=== PATIENT | male | born 1995 | race Caucasian/White ===

== ENCOUNTER 2016-07-16 22:23 | Emergency (ER) | payer SELFPAY ==
[2016-07-16 22:55] LABS: % IMMATURE GRANULYOCYTES 0.4 % (0.0-1.1); ABSOLUTE IMMATURE GRANULOCYTES 0.02 10^3/uL (0.00-0.10); ADD DIFF? NO; ADD MORPH? NO; ADD SCAN? NO; ATYPICAL LYMPHOCYTE FLAG 0 (0-99); FRAGMENT RBC FLAG 0 (0-99); HEMATOCRIT 47.4 % (40.0-51.0); HEMOGLOBIN 16.1 g/dL (13.7-17.5); LEFT SHIFT FLG 0 (0-99); LIPEMIA HEMOLYSIS FLAG 90 (0-99); MEAN CELL HEMOGLOBIN 31.4 pg (27.9-34.1); MEAN CELL VOLUME 92.6 fL (81.5-99.8); MEAN PLATELET VOLUME 9.7 fL (8.7-11.7); PLATELET CLUMPS FLAG 0 (0-99); PLATELET COUNT 260 10^3/uL (150-400); RED BLOOD CELL COUNT 5.12 10^6/uL (4.40-6.38); RED CELL DISTRIBUTION WIDTH 11.9 % (11.5-15.2)
[2016-07-16 22:57] LABS: ALANINE AMINOTRANSFERASE 28 IU/L (21-72); ALBUMIN 4.8 g/dL (3.5-5.0); ALKALINE PHOSPHATASE 46 IU/L (38-126); ANION GAP 14 mEq/L (8-16); ASPARTATE AMINOTRANSFERASE 28 IU/L (17-59); BILIRUBIN,TOTAL 0.5 mg/dL (0.1-1.4); CALCIUM 10.2 mg/dL (8.5-10.4); CARBON DIOXIDE 20 mEq/l (22-31); CHLORIDE 105 mEq/L (97-110); CREATININE 1.2 mg/dL (0.7-1.3); ETHANOL SERUM < 10 mg/dL (0-10); GLOMERULAR FILTRATION RATE > 60; GLUCOSE 87 mg/dL (70-100); POTASSIUM 4.3 mEq/L (3.5-5.2); SALICYLATE < 1.0 mg/dL (2.0-20.0); SODIUM 139 mEq/L (134-144); TOTAL PROTEIN 7.7 g/dL (6.3-8.2)
[2016-07-16 23:00] LABS: INR 0.93 (0.83-1.16); PROTIME(PATIENT) 12.4 SEC (12.0-15.0)
--- NOTE | 2016-07-16 23:27 | EDPHY ---
H & P Smoking Status: Never smoked Time Seen by Provider: 07/16/16 22:34 HPI/ROS: CHIEF COMPLAINT: Consumed rat poisoning HISTORY OF PRESENT ILLNESS: 20-year-old male presents to the emergency department by EMS after he intentionally consumed rat poisoning. The patient states that he was at home with his mother and younger brother who were in an argument. The patient threatened to ingest rat poisoning. His brother apparently did not believe him and so the patient ate approximately half of a block of the rat poisoning. The incident happened around 8:30 p.m.. His mother called EMS the patient was transported to the emergency department. The patient does state that he vomited approximately 15 or 20 minutes later just a small amount however did note that a piece of the rat poisoning was in the emesis. Currently he feels tired. He has no chest pain or difficulty breathing. No headache. No abdominal pain. Patient states that he was not suicidal or homicidal. He denies auditory visual hallucinations. He has never been hospitalized for mental illness. REVIEW OF SYSTEMS: Constitutional: No fever, no chills. Eyes: No double or blurry vision. ENT: No sore throat. Respiratory: No cough, no shortness of breath. Cardiac: No chest pain. Gastrointestinal: No abdominal pain, vomiting or diarrhea. Genitourinary: No dysuria. Musculoskeletal: No neck or back pain. Skin: No rashes. Neurological: No headache. (Jyoti Bhagat) Past Medical/Surgical History: negative (Jyoti Bhagat) Social History: Single and lives with his mother and younger brother (Jyoti Bhagat) Physical Exam: General Appearance: Alert, no distress. Vital signs are stable. Eyes: Pupils equal and round. Extraocular motions are all intact. ENT: Mouth: Mucous membranes moist. Respiratory: No wheezing, rhonchi, or rales, lungs are clear to auscultation. Cardiovascular: Regular rate and rhythm. Gastrointestinal: Abdomen is soft and nontender, no masses, no rebound or guarding, bowel sounds normal. Neurological: Alert and oriented x 3, cranial nerves II through XII grossly intact Skin: Warm and dry, no rashes. Musculoskeletal: Nontender to palpate along the cervical, thoracic or lumbar spine. Neck is supple. Extremities: Full range of motion and no peripheral edema. Psychiatric: Patient is oriented X 3, there is no agitation. (Jyoti Bhagat) Constitutional: Initial Vital Signs Temperature (C) 36.7 C 07/16/16 22:34 Heart Rate 81 07/16/16 22:34 Respiratory Rate 16 07/16/16 22:34 Blood Pressure 156/93 H 07/16/16 22:34 O2 Sat (%) 96 07/16/16 22:34 O2 Delivery Mode Room Air Allergies/Adverse Reactions: No Known Allergies Allergy (Unverified 11/27/13 15:58) Home Medications: Medication Instructions Recorded NK [No Known Home Meds] 07/16/16 Medical Decision Making ED Course/Re-evaluation: 20-year-old male presents to the emergency department by EMS after she consumed rat poisoning. The patient tells me that he did this out of a reaction and not of suicidal ideation. I did however ask the patient if he knew that the rat poisoning may kill him and the patient replied "yes" and I asked if he was okay that this may kill him and the patient stated "I probably would of consumed more if was trying to kill myself." I spoke with poison control, case #[id number]. They recommended close observation. They did not recommend giving vitamin K as this does interfere with the observation. They recommended checking PT INR levels every 12 hours for 48 hours. The patient will be observed until he is medically cleared after 48 hours and then will be evaluated by mental health. (Jyoti Bhagat) 0649: No acute events overnight. Patient needs acute 12 hour INR checks. 48 hours. He is on M1 hold. Will be medically cleared after normal INR 48 hours. (Bennie Mendoza) I assumed care of the patient at 3pm pending medical center clearance. I evaluated the patient. Based upon my assessment the patient does not appear to be acutely suicidal. The patient appears to have had an issue with an inappropriate response to a stressful situation. The patient does contract for safety. I did ask the mental health crozer operator to see the patient despite his ongoing serial INR checks. They have evaluated the patient and concur that he is not meet criteria for 72 hour mental health hold. The hold has been vacated by the on-call psychiatrist. The patient will return to the emergency department tomorrow at 9:00 a.m. and 9: 00 p.m. for repeat check INR. The patient does understand return to the ED sooner for any suicidal thoughts, thoughts of self-harm or other concerns. Recheck INR at 8:00 p.m. continues to be normal. The patient will return tomorrow again for 2 additional INR checks. (Jimy Roblero) Differential Diagnosis: Including but not limited to situational reaction, functional and major depression, situational depression, medication side effect, drugs and alcohol abuse. (Jyoti Bhagat) Care Turn Over: Care will be turned over to Dr. Bennie Mendoza at 12:30 a.m. for disposition and plan. (Jyoti Bhagat) - Data Points Laboratory Results: Laboratory Results 07/16/16 22:28 07/16/16 22:28 07/17/16 07/17/16 20:15 10:10 PT 12.2 SEC SEC 13.0 SEC SEC (12.0-15.0) (12.0-15.0) INR 0.91 0.99 (0.83-1.16) (0.83-1.16) Departure - Departure Disposition: Home, Routine, Self-Care Clinical Impression: ingested rat poison, Situational anxiety Condition: Good Instructions: Anxiety (ED) Additional Instructions: 1. Please return to the emergency department tomorrow at 9:00 a.m. and again at 9:00 p.m. for repeat blood test to ensure that you are not developing a significant bleeding problem from your consumption of rat poison. It is imperative that these testing be performed to assess for a serious underlying medical condition. 2. Please return to the ED sooner for any increasing abdominal pain, signs of bleeding or other concerns. 3. Please return to the ED immediately if you are feeling suicidal, having worsening depression or anxiety or other acute concerns. Referrals: Alen Wooten MD [Primary Care Provider] - As per Instructions
[2016-07-17 10:30] LABS: INR 0.99 (0.83-1.16)
[2016-07-17 16:21] VITALS: RESP 16
[2016-07-17 20:34] LABS: INR 0.91 (0.83-1.16); PROTIME(PATIENT) 12.2 SEC (12.0-15.0)
[2016-07-17 20:59] VITALS: BP 132/91; PULSE 76; TEMP 98.6; O2SAT 98
== END 2016-07-17 20:57 | disposition home or self-care (01) ==
LOC: EDUNIT#
DX: T60.4X2A Toxic effect of rodenticides, intentional self-harm, initial encounter (principal); F41.9 Anxiety disorder, unspecified
CPT/HCPCS: 80305; G0480